=== PATIENT | male | born 1945 | race African-American/Black ===

== ENCOUNTER 2016-09-07 12:42 | Emergency (ER) | payer MEDICARE, MEDICAID ==
[~2016-09-07] VITALS: Wt 77.5 kg
[2016-09-07] MEDS ORDERED: DIPHENHYDRAMINE 50 MG INJ IV ONE (15:00)
[2016-09-07 15:15] LABS: ADD SCAN DIFF NO
[2016-09-07 15:19] LABS: BASOPHIL # 0.1 10^3/ul (0.0-0.1); BASOPHILS % 0.7 % (0.0-2.0); EOSINOPHILS # 0.2 10^3/ul (0.0-0.5); EOSINOPHILS % 2.5 % (0.0-7.0); HEMATOCRIT 45.3 % (42.0-52.0); HEMOGLOBIN 14.7 g/dl (14.0-18.0); LYMPHOCYTES # 2.8 10^3/ul (0.8-2.9); LYMPHOCYTES % 31.8 % (15.0-51.0); MEAN CORPUSCULAR HEMOGLOBIN 29.1 pg (29.0-33.0); MEAN CORPUSCULAR HGB CONC 32.5 g/dl (32.0-37.0); MEAN CORPUSCULAR VOLUME 89.5 fl (82.0-101.0); MEAN PLATELET VOLUME 8.7 fl (7.4-10.4); MONOCYTE # 0.7 10^3/ul (0.3-0.9); MONOCYTES % 7.6 % (0.0-11.0); NEUTROPHILS % 56.2 % (39.0-77.0); PLATELET COUNT 429 10^3/UL (140-415); RED BLOOD COUNT 5.06 10^6/ul (4.70-6.10); RED CELL DISTRIBUTION WIDTH 12.1 % (11.5-14.5); WHITE BLOOD COUNT 8.9 10^3/ul (4.8-10.8)
[2016-09-07] MEDS ORDERED: HYDROCODONE/APAP (5/325) TAB PO ONE (15:30)
[2016-09-07] MEDS ORDERED: DEXAMETHASONE 10 MG/ML 1 ML INJ IV ONE (15:30)
[2016-09-07 15:44] LABS: ALBUMIN 3.7 g/dl (3.3-4.9); ALBUMIN/GLOBULIN RATIO 0.8; CALCIUM 9.3 mg/dl (8.4-10.2); CREATININE 1.1 mg/dl (0.61-1.24); POTASSIUM 4.2 mmol/L (3.5-5.1); TOTAL PROTEIN 8.3 g/dl (6.1-8.1)
[2016-09-07] MEDS ORDERED: SOD CHLORIDE 0.9% 100 ML ONE (16:19)
[2016-09-07] MEDS ORDERED: IOHEXOL 300MG/ML 150 ML BTL ONE (16:19)
--- NOTE | 2016-09-07 16:45 | RADRPT ---
AMENDMENT: 09/07/2016 6:20:06 PM Lencho Aviles M.d A cavitary lesion in the left upper lobe is incompletely visualized and measures 3.5 cm in size. Fu rther evaluation with a CT of the chest is recommended. PROCEDURE: CT of the neck CLINICAL INDICATION: Right facial swelling. TECHNIQUE: Using a [employer] light speed [address] scanner, multiple axial CT images of the neck were o btained from the skull base to the superior mediastinum. 80 cc of Omnipaque-300 was administered. Coronal and sagittal reformatted images were provided. The images were reviewed on a [employer] PACS workstation. The CTDI vol is 8.71 mGy and the DLP is 219.55 mGy-cm. COMPARISON: None FINDINGS: Soft tissue swelling in the premandibular region is seen characterized by skin thickening and reticu lation of the subcutaneous fat. The bilateral parotid and submandibular glands are normal in size a nd attenuation. The oral tongue is not well visualized secondary to dental amalgam. The base of to ngue and floor mouth are normal. The nasopharynx, oropharynx, hypopharynx, larynx, and trachea are normal. The thyroid gland is normal in size and attenuation. No abnormally enlarged lymph nodes in the cervical or submental chains are seen. The supraclavicular space is clear. No neck mass or fl uid collection is seen. The superior mediastinum and lung apices are within normal limits. The osse ous structures are intact. Vascular calcifications are seen. IMPRESSION: Soft tissue swelling in the premandibular region which may represent cellulitis. RPTAT: HPNM Physician Leonora Date Time Electronically viewed and signed by Physician Leonora on 09/07/2016 18:20 /
[2016-09-07] MEDS ORDERED: AMLO5TAB4 PO (17:28)
[2016-09-07] MEDS ORDERED: DIPH25CA6 PO (17:28)
[2016-09-07] MEDS ORDERED: CEPH-443 PO (17:28)
[2016-09-07] MEDS ORDERED: HYDR-906 PO (17:28)
[2016-09-07] MEDS ORDERED: PRED20TA PO (17:28)
--- NOTE | 2016-09-07 17:34 | ERD ---
ER Documentation Chief Complaint Date/Time DATE: 09/07/16 TIME: 17:32 Chief Complaint COUGH, SOB, ONSET 3 DAYS, NO DISTRESS, ALSO PAIN IN CHIN AREA HPI 71-year-old male complains of some swelling on his lower lip for last 2 days. He has pain on the right lower dental area as well. He takes lisinopril for high blood pressure. Denies any fevers, vomiting, shortness of the chest pain. He denies any difficulty breathing or difficulty swallowing. ROS All systems reviewed and are negative except as per history of present illness. Medications Home Meds Active Scripts Cephalexin* (Keflex*) 500 Mg Capsule, 500 MG PO QID for 10 Days, CAP Prov:DIVYA CAZARES MD 09/07/16 Hydrocodone/Acetaminophen ([place] 5-325 Tablet) 1 Each Tablet, 1 EACH PO TID, # 12 TAB Prov:DIVYA CAZARES MD 09/07/16 Diphenhydramine Hcl* (Diphenhydramine Hcl*) 25 Mg Capsule, 25 MG PO Q6 Y for ITCHING, #15 CAP Prov:DIVYA CAZARES MD 09/07/16 Amlodipine Besylate* (Norvasc*) 5 Mg Tablet, 5 MG PO DAILY, #30 TAB Prov:DIVYA CAZARES MD 09/07/16 Discontinued Scripts Prednisone* (Prednisone*) 20 Mg Tab, 40 MG PO DAILY for 3 Days, TAB Start September 08, 2016 Prov:DIVYA CAZARES MD 09/07/16 Allergies Allergies: Coded Allergies: ibuprofen (Verified Allergy, Unknown, 09/07/16) PMhx/Soc Medical and Surgical Hx: pt denies Medical Hx, pt denies Surgical Hx Hx Alcohol Use: No Hx Substance Use: No Hx Tobacco Use: No Smoking Status: Never smoker Physical Exam Vitals Vital Signs Date Time Temp Pulse Resp B/P Pulse Ox O2 Delivery O2 Flow Rate FiO2 09/07/16 12:46 96.8 81 17 170/79 99 Physical Exam Const: [] Alert, [id number] Head: Atraumatic Eyes: Normal Conjunctiva ENT: Normal External Ears, Nose and Mouth. There is some non-erythematous swelling of the right lower lip and the anterior chin area. There is no warmth , induration. Airways patent and tonsils and uvula midline. Neck: Full range of motion..~ No meningismus. Resp: Clear to auscultation bilaterally Cardio: Regular rate and rhythm, no murmurs Abd: Soft, non tender, non distended. Normal bowel sounds Skin: No petechiae or rashes Back: No midline or flank tenderness Ext: No cyanosis, or edema Neur: Awake and alert Psych: Normal Mood and Affect Result Diagram: 09/07/16 1500 09/07/16 1500 Results 24 hrs Laboratory Tests Test 09/07/16 15:00 White Blood Count 8.910^3/ul Red Blood Count 5.0610^6/ul Hemoglobin 14.7g/dl Hematocrit 45.3% Mean Corpuscular Volume 89.5fl Mean Corpuscular Hemoglobin 29.1pg Mean Corpuscular Hemoglobin Concent 32.5g/dl Red Cell Distribution Width 12.1% Platelet Count 15126^3/UL Mean Platelet Volume 8.7fl Neutrophils % 56.2% Lymphocytes % 31.8% Monocytes % 7.6% Eosinophils % 2.5% Basophils % 0.7% Nucleated Red Blood Cells % 0.0/100WBC Neutrophils # 5.010^3/ul Lymphocytes # 2.810^3/ul Monocytes # 0.710^3/ul Eosinophils # 0.210^3/ul Basophils # 0.110^3/ul Nucleated Red Blood Cells # 0.010^3/ul Sodium Level 136mmol/L Potassium Level 4.2mmol/L Chloride Level 99mmol/L Carbon Dioxide Level 28mmol/L Anion Gap 13 Blood Urea Nitrogen 11mg/dl Creatinine 1.10mg/dl Glucose Level 107mg/dl Calcium Level 9.3mg/dl Total Bilirubin 0.0mg/dl Direct Bilirubin 0.00mg/dl Indirect Bilirubin 0.0mg/dl Aspartate Amino Transf (AST/SGOT) 29IU/L Alanine Aminotransferase (ALT/SGPT) 35IU/L Alkaline Phosphatase 101IU/L Total Protein 8.3g/dl Albumin 3.7g/dl Globulin 4.60g/dl Albumin/Globulin Ratio 0.80 Current Medications Medications (Trade) Dose Ordered Sig/Tristen Route PRN Reason Start Time Stop Time Status Last Admin Dose Admin Diphenhydramine HCl (Benadryl) 25 mg ONCE ONCE IV 09/07/16 15:00 09/07/16 15:01 DC 09/07/16 15:07 Dexamethasone (Decadron) 10 mg ONCE ONCE IV 09/07/16 15:30 09/07/16 15:31 DC 09/07/16 15:37 Acetaminophen/ Hydrocodone Bitart ([place] (5/325)) 1 tab ONCE ONCE PO 09/07/16 15:30 09/07/16 15:31 DC 09/07/16 15:37 IV Flush 10 ml 10 ml STK-MED ONCE .ROUTE 09/07/16 16:19 09/07/16 16:20 DC 09/07/16 16:31 Sodium Chloride (NS) 100 ml @ ud STK-MED ONCE .ROUTE 09/07/16 16:19 09/07/16 16:20 DC 09/07/16 16:33 Iohexol (Omnipaque 300mg/ ml) 150 ml STK-MED ONCE .ROUTE 09/07/16 16:19 09/07/16 16:20 DC 09/07/16 16:33 Procedures/MDM Patient presents with some lower lip swelling. Concerns for angioedema given his CARMEN inhibitor use. IV was obtained. Patient was given Decadron 10 mg IV and Benadryl 25 mg IV. Patient had decreased swelling in the ED course. Given the uncertain cause of pain which does not appear characteristic for angioedema and extension to the submandibular area CT abdomen and pelvis with IV contrast shows some pre-mandibular swelling without evidence of abscess or Jay's angina. Patient felt better after observation treatment was given [place] 5 mg by mouth for pain. Patient appears to have angioedema although cause of pain is uncertain. He will be treated with Keflex for possible dental infection or mild cellulitis but CBC shows no evidence of bacterial infection or left shift. Patient given Benadryl as well and instructions to stop lisinopril. We will change blood pressure medicine to Norvasc patient is advised to follow-up with primary doctor this week return for fevers, shortness of breath, difficulty swallowing, new worsening symptoms or worsening swelling. The patient was stable with no new complaints during the ER course. Clinically, there is no current evidence to suggest meningitis, sepsis, acute abdomen, pneumonia, acute coronary syndrome, pulmonary embolism, or any other emergent condition appearing to require further evaluation or hospitalization. The patient should certainly return for any new or worsening symptoms per the aftercare instructions. They should otherwise follow-up with her primary care doctor for reevaluation this week. Departure Diagnosis: Primary Impression: Hypertension Additional Impression: Angioedema Encounter type: initial encounter Qualified Code: T78.3XXA - Angioedema, initial encounter Condition: Stable Patient Instructions: High Blood Pressure (Hypertension), Angioedema Additional Instructions: Recheck for new or worsening symptoms. Stop lisinopril. Likely reaction to blood pressure medicine but we will treat for infection. See primary doctor this week or return to the ER for new or worsening symptoms. DIVYA CAZARES MD September 07, 2016 17:34
[2016-09-07 18:00] VITALS: BP 189/76; PULSE 79; RESP 18
== END 2016-09-07 18:01 | disposition home or self-care (01) ==
LOC: FTE 12:42
DX: I10 Essential (primary) hypertension (principal); T78.3XXA Angioneurotic edema, initial encounter
CPT/HCPCS: 70491; 80053; 85025; J1100; J1200; Q9967